=== PATIENT | male | born 1960 | race American Indian/Alaskan Native ===

== ENCOUNTER 2021-04-14 09:57 | Day surgery (SDC) | payer OTHER ==
[~2021-04-14 09:57] MED LIST: ACETAMINOPHEN 500 MG TAB PO SCH; CELECOXIB 200 MG CAP PO NR; GABAPENTIN 300 MG CAP PO NR; LACTATED RINGERS 1,000 ML IV SCH; MIDAZOLAM 2 MG/2 ML INJ IV NR
--- NOTE | 2021-04-14 10:41 | Anesthesia Consultation ---
Anesthesia Consult and Med Hx - Airway Anesthetic Teeth Evaluation: Partials ROM Head & Neck: Adequate Mental/Hyoid Distance: Adequate Mallampati Class: Class II Intubation Access Assessment: Probably Good - Pre-Operative Health Status ASA Pre-Surgery Classification: ASA2 Proposed Anesthetic Plan: General - Pulmonary Hx Smoking: Yes (cigars) Hx Respiratory Symptoms: No - Cardiovascular System Hx Hypertension: No Hx Heart Attack/AMI: No Hx Percutaneous Transluminal Coronary Angioplasty (PTCA): No - Central Nervous System CVA: No Hx Back Pain: Yes - Endocrine Hx Renal Disease: No Hx Liver Disease: No Hx Insulin Dependent Diabetes: No Hx Non-Insulin Dependent Diabetes: No Hx Thyroid Disease: No - Other Systems Hx Obesity: No - Additional Comments Anesthesia Medical History Comments: No prior GA.
--- NOTE | 2021-04-14 10:42 | Anesthesia Day of Surgery ---
Anesthesia Day of Surgery - Day of Surgery Patient Examined: Yes Patient H&P Reviewed: Yes Patient is NPO: Yes
[2021-04-14] MEDS ORDERED: ONDANSETRON 4 MG/2 ML INJ IV PRN (11:00)
[2021-04-14] MEDS ORDERED: CELECOXIB 200 MG CAP PO NR (11:00)
[2021-04-14] MEDS ORDERED: oxyCODONE /ACETAMINOPHEN 5-325MG TAB PO PRN (11:00)
[2021-04-14] MEDS ORDERED: GABAPENTIN 300 MG CAP PO NR (11:00)
[2021-04-14] MEDS ORDERED: HEPARIN 5,000 UNIT/1 ML VIAL SUB-Q NR (11:30)
[2021-04-14] MEDS ORDERED: ceFAZolin/STERILE WATER 2 GM/20 ML SYRINGE IV NR (11:31)
[2021-04-14] MEDS ORDERED: KETAMINE/STERILE WATER 50 MG/ML SYRINGE ONE (12:55)
[2021-04-14] MEDS ORDERED: propofoL 200 MG/20 ML VIAL IV ONE (12:55)
[2021-04-14] MEDS ORDERED: MIDAZOLAM 2 MG/2 ML INJ ONE (12:56)
[2021-04-14] MEDS ORDERED: BUPIVACAINE/PF (0.25%) 2.5 MG/ML 30 ML VIAL INFILTRATI ONE ×2 (12:59→13:41)
[2021-04-14] MEDS ORDERED: ONDANSETRON 4 MG/2 ML INJ ONE (13:15)
[2021-04-14] MEDS ORDERED: KETOROLAC 30 MG/1 ML INJ ONE (13:15)
[2021-04-14] MEDS ORDERED: dexAMETHasone 20 MG/5 ML VIAL ONE (13:15)
[2021-04-14] MEDS ORDERED: SODIUM CHLORIDE 0.9% IRR 1,000 ML BOTTLE IR ONE (13:41)
[2021-04-14] MEDS ORDERED: BACITRACIN ZINC OINT 28.4 GM TP ONE (14:53)
--- NOTE | 2021-04-14 15:07 | Procedure Note ---
Date of procedure: 04/14/21 Pre-op diagnosis: 1) RIH 2) Scalp mass, 2.5 cm Post-op diagnosis: same (1) RIH was direct. 2) Scalp mass was a pilar cyst.) Procedure: 1) Open RIH repair 2) Excision of 2.5 cm scalp mass Description of procedure: Pt was placed supine on the OR table. General anesthesia was administered. Lower abdomen was prepped and draped. The proposed right suprapubic incision was infiltrated with 8 ml of 0.5% Marcaine. Skin was incised. SQ tissue was transected with the Bovie. External oblique aponeurosis was exposed. The aponeurosis was incised over the inguinal canal with the incision extending through the external inguinal ring. Care was taken to preserve the ilioinguinal nerve. Cord structures were dissected circumferentially at the level of the pubic tubercle and a Paulden drain passed about the cord. A direct hernia was immediately identified. The hernia sac was excised with the Bovie. The conjoined tendon was approximated to the shelving portion of Poupart's ligament with multiple interrupted sutures of 2-0 Ethibond. The cord was skeletonized but no indirect hernia sac was found. External oblique aponeurosis was approximated with a running suture of 3-0 Vicryl. Skin was approximated with a running subcuticular suture of 4-0 Monocryl. Skin glue was applied. Pt was repositioned left side down in preparation for excision of his scalp mass. The scalp and mass were prepped and draped. Skin and SQ tissue about the mass were infiltrated with 8 ml of 1% Lidocaine with epinephrine. The mass was then excised with careful sharp and Bovie dissection. The mass was c/w a pilar cyst. Hemostasis was obtained with the Bovie. Wound was irrigated with warm saline. Skin was approximated with a running suture of 4-0 Nylon. Neosporin ointment was applied to the incision. Pt tolerated both procedures well. Pt was taken to PACU in stable condition. Anesthesia: other (LMA) Surgeon: LEXA NIXON Estimated blood loss: minimal Pathology: list (Scalp mass) Specimen disposition: to lab Condition: stable Disposition: PACU
[2021-04-14] MEDS: HYDROmorphone 1 MG/1 ML INJ IV PRN ×4 (15:15→16:00)
[2021-04-14 16:38] VITALS: BP 126/76
--- NOTE | 2021-04-14 16:51 | Post Anesthesia Evaluation ---
- Post Anesthesia Evaluation Patient Participated: Yes Airway Patent: Yes Stable Respiratory Function: Yes Nausea/Vomiting: No Temp > 96.8F: Yes Pain Manageable: Yes Adequeate Hydration: Yes Anesthesia Complications: No
== END 2021-04-14 17:30 | disposition home or self-care (01) ==
LOC: OR 09:57
PROVIDERS: ATTEND Surgery
DX: R22.0 Localized swelling, mass and lump, head (principal); K40.90 Unilateral inguinal hernia, without obstruction or gangrene, not specified as recurrent; F17.210 Nicotine dependence, cigarettes, uncomplicated; Z79.899 Other long term (current) drug therapy; Z98.890 Other specified postprocedural states
CPT/HCPCS: 11423; 49505; 88304; J0690; J1100; J1170; J1644; J1885; J2250; J2405; J2704; J3490; J7120; 88307